=== PATIENT | male | born 1980 | race Caucasian/White ===

== ENCOUNTER 2023-02-07 07:05 | Emergency (ER) | payer BC, SELFPAY ==
[2023-02-07] VITALS (8 sets, daily range): BP systolic 147–188; BP diastolic 87–116; PULSE 105–119; RESP 15–20; TEMP 36.8; O2SAT 96–98; BMI 32.1
--- NOTE | 2023-02-07 07:15 | ECG_ITS ---
APPROVED REPORT Exam: Resting ECG HR:109 bpm ECG Measurements Heart Rate 109 AXES NE 185 P 35 QRSd 105 QRS -82 QT 347 T 64 QTc 411 Conclusion SINUS TACHYCARDIA S1-S2-S3 PATTERN, CONSISTENT WITH PULMONARY DISEASE, RVH, OR NORMAL VARIANT PATTERN CONSISTENT WITH PULMONARY DISEASE LEFT ANTERIOR FASCICULAR BLOCK [QRS AXIS <= -45, QR IN I, RS IN II] ABNORMAL ECG UNCONFIRMED REPORT Electronically signed by : Jeremy Maguire MD 02/08/2023 15:02:46
--- NOTE | 2023-02-07 07:16 | XR_ITS ---
FINAL REPORT CLINICAL HISTORY: htn COMPARISON: 01/07/2023 FINDINGS: There is no evidence of effusion or other pleural disease. The mediastinum has a normal appearance. The cardiac silhouette is unremarkable. IMPRESSION: Unremarkable chest exam. Reviewed, Interpreted and Dictated by Berna Sterling MD Transcribed by Johnna Chavis Authenticated and [facility]
--- NOTE | 2023-02-07 07:28 | PC.NURSE ---
07:00 Assumed pt care. Pt moved to room with telemetry. Placed on monitor. EKG completed. PIV established with completed labs.
[2023-02-07 07:30] LABS: Basophils % 0.6 % (0.1-2.0); Eosinophils # 0.2 K/mm3 (0.0-0.4); Eosinophils % 2.7 % (0.1-12.0); Hematocrit 48.6 % (42.0-52.0); Hemoglobin 16.5 g/dL (14.1-18.0); Lymphocytes # 1.7 K/mm3 (0.7-4.5); Lymphocytes % 27.8 % (10-50); Mean Corpuscular Hemoglobin 28.5 pg (27.0-31.2); Mean Corpuscular Volume 83.9 fl (80-94); Mean Platelet Volume 7.6 fl (7.4-10.4); Monocytes # 0.3 K/mm3 (0.1-1.0); Neutrophils # 3.9 K/mm3 (1.8-7.8); Platelet Count 229 K/mm3 (142-424); Red Blood Count 5.79 M/mm3 (4.60-6.20); Red Cell Distribution Width 13.9 % (11.5-17.5); White Blood Count 6.1 K/mm3 (4.8-10.8)
[2023-02-07 07:36] LABS: Anion Gap 21.4 mEq/L (5-15); Blood Urea Nitrogen 9 mg/dl (9-20); Calcium 8.9 mg/dl (8.4-10.2); Carbon Dioxide 24 mmol/L (22.0-30.0); Chloride 97 mmol/L (98-107); Creatinine Clearance Estimated 139 mL/min (50-200); Estimated Glomerular Filt Rate 81 ml/min (>60); GFR (African American) 98 ML/MIN (>60); Glucose 328 mg/dl (74-100); Magnesium 1.5 mg/dl (1.6-2.3); Potassium 3.4 mmoL/L (3.5-5.1); Sodium 139 mmol/L (136-145)
--- NOTE | 2023-02-07 07:36 | PC.NURSE ---
Patient back from x-ray
--- NOTE | 2023-02-07 07:37 | PC.NURSE ---
Rounded on patient; call light within reach of patient
[2023-02-07 07:48] LABS: NT Pro Brain Natriuretic Pep. 36.9 pg/mL (0-125)
[2023-02-07 07:49] LABS: Troponin I < 0.01 ng/ml (0.00-0.034)
--- NOTE | 2023-02-07 08:24 | PC.NURSE ---
Echo at bedside.
--- NOTE | 2023-02-07 08:58 | PC.NURSE ---
Rounded on patient; call light within reach of patient.
--- NOTE | 2023-02-07 09:27 | HMH.EDGENADL ---
Discharge Plan Disposition Patient Disposition: Home, Self-Care Prescriptions Prescriptions: New lisinopril 40 mg tablet 40 mg PO DAILY Qty: 30 0RF amlodipine 5 mg tablet 5 mg PO DAILY Qty: 30 0RF Referrals Follow up/Referrals: Provider,Referral, [Primary Care Provider] - See instructions Activity Restrictions/Add. Instructions Additional Instructions/Restrictions: Appointment made with cardiology here at [facility] on February 21 at 1030am Return to the emergency department for worsening chest pain dizziness or any other concerns within the next 8 hours Clinical Impressions Clinical Impression: Hypertension Discharge ED Provider: Marcus (ED)Greg General Adult HPI General Chief complaint: Dizziness Stated complaint: high blood pressure Time Seen by Provider: 02/07/23 08:00 Mode of Arrival: EMS Source of Information: Patient Limitations: No Limitations Description of Symptoms (Recalled from ER Triage Doc. by RN): Pt arrives via ems. C/O uncontrolled htn. Says that he had a telehealth visit a few days ago with [facility] (says he hasn't taken his htn medications in over a year and was trying to get the rx) and his pressure was 280/130 and they refused to treat his htn at that point, citing that he needs to go to the ed to get treated. Pt states that he called 911 this morning because he was feeling light headed this morning so he called 911. History of Present Illness HPI narrative: 42-year-old male with history of hypertension presents with lightheadedness and hypertension. He says he has not taken hypertension medicine in over a year. He says that he follows with [facility] in clinic but had high blood pressure readings so they did not refill his medicine. They called 911 this morning because he felt lightheaded. No chest pain abdominal pain shortness of air headache numbness weakness or tingling arms or legs. Related Data Previous Rx's Medication Instructions Recorded amlodipine 5 mg tablet 5 mg PO DAILY #30 tabs 02/07/23 lisinopril 40 mg tablet 40 mg PO DAILY #30 tabs 02/07/23 Allergies Allergy/AdvReac Type Severity Reaction Status Date / Time Penicillins Allergy Unknown Unknown Verified 02/07/23 07:14 allergy reaction [facility] Disclaimer: The information contained in this section may have been updated after the patient was seen, as this information can be updated by other users. Social History Smoking Status: Never smoker alcohol intake: never current occupational status: employed Travel in the last 8 weeks: Inside the [place] ROS Obtained: Yes All systems reviewed & no additional complaints except as documented Constitutional Constitutional: Denies fever(s) and Denies headache(s) Eyes Eyes: Denies dry eyes ENT Ears, Nose, Mouth, and Throat: Denies headache(s) Cardiovascular Cardiovascular: Denies dyspnea Respiratory Respiratory: Denies dyspnea and Denies wheezing Gastrointestinal Gastrointestingal: Denies coffee ground emesis Genitourinary Male Genitourinary: Denies flank pain Musculoskeletal Musculoskeletal: Denies joint swelling Integumentary/Breasts Skin/Breast: Denies rash Neurologic Neurologic: Denies headache(s) Endocrine Endocrine: Denies polyuria Hematologic/Lymphatic Henatologic/Lymphatic: Denies easy bleeding Allergic/Immunologic Allergic/Immunologic: Denies wheezing Physical Exam General General appearance: alert and in no apparent distress Eye Eye exam: Present PERRL and EOMI ENT ENT exam: Present normal exam and normal oropharynx Neck Neck exam: Present normal inspection Chest Chest inspection: Present symmetric chest wall rise Respiratory Respiratory exam: Present normal lung sounds bilaterally; Absent respiratory distress Cardiovascular Cardiovascular exam: Present regular rate and normal rhythm Abdominal Exam Abdominal exam: Present soft; Absent distention, tenderness, guarding, rebound, Mi's
--- NOTE | 2023-02-07 09:37 | PC.NURSE ---
PT DOES NOT HAVE A RIDE HOME I CALLED [facility] THEY ARE TRYING TO FIND HIM A RIDE BACK TO [facility]
--- NOTE | 2023-02-07 10:16 | PC.NURSE ---
Upon discharge MD notified of blood pressure. Patient asymptomatic, okay for discharge.
--- NOTE | 2023-02-07 11:11 | CARE MANAGER ---
Called and scheduled [facility] to arrange transport home. Per Monalisa in the ER, patient states he is able to pay. Per [facility], unless they have a cancelation, patient will be picked up around 1800. ER notified of this informaion.
== END 2023-02-07 10:00 | disposition home or self-care (01) ==
PROVIDERS: Emergency Provider Emergency Medicine
DX: R42 Dizziness and giddiness (principal); I10 Essential (primary) hypertension
CPT/HCPCS: 71046; 80048; 83735; 83880; 84484; 85025; 93005; 93306; 96365; 99285; J3475